=== PATIENT | male | born 1970 | race African-American/Black ===

== ENCOUNTER → 2019-03-07 | Outpatient (CLI) | payer OTHER, BC ==
--- NOTE | 2019-03-07 15:57 | KCIC ---
EXAMINATION: Magnetic resonance imaging (MRI) of the lumbar spine without contrast 03/07/2019 2:45 PM HISTORY: Low back pain. Left radiculopathy. TECHNIQUE: Multiplanar multi-weighted MRI of the lumbar spine was performed without intravenous contrast using the standard lumbar spine protocol. Contrast information: None administered. COMPARISON: None available. FINDINGS: There is minimal retrolisthesis of L5 on S1. There is straightening of the normal lumbar lordosis. Vertebral bodies demonstrate normal signal intensity on all sequences. There are no compression fractures. The conus medullaris terminates at the level of L1. The distal spinal cord signal intensity is normal. There is disc desiccation at L3-L4, L4-L5 and L5-S1. Mild endplate edema is noted at L5-S1. There is a horseshoe kidney. L1-L2: The disc is normal in configuration. There is no facet arthropathy. There is no neuroforaminal stenosis. There is no spinal canal stenosis. L2-L3: The disc is normal in configuration. There is no facet arthropathy. There is no neuroforaminal stenosis. There is no spinal canal stenosis. L3-L4: Mild disc bulge. There is mild facet arthropathy. There is mild neuroforaminal stenosis. There is no spinal canal stenosis. L4-L5: Mild circumferential disc bulge with right central annular fissure. There is no facet arthropathy. There is mild to moderate right and mild left neuroforaminal stenosis. There is no spinal canal stenosis. L5-S1: There is a disc bulge with central disc protrusion. There is no facet arthropathy. There is mild neuroforaminal stenosis. There is no spinal canal stenosis. IMPRESSION: Mild degenerative changes of the lumbar spine as described in detail above. Electronically signed by: Morenita Wright MD (03/07/2019 3:55 PM) [id number]
== END | disposition home or self-care (01) ==
LOC: KCIC MRI 14:21
PROVIDERS: ATTEND Family Medicine
DX: M51.27 Other intervertebral disc displacement, lumbosacral region (principal); M12.88 Other specific arthropathies, not elsewhere classified, other specified site; M47.816 Spondylosis without myelopathy or radiculopathy, lumbar region; M40.46 Postural lordosis, lumbar region; Q63.1 Lobulated, fused and horseshoe kidney; M48.061 Spinal stenosis, lumbar region without neurogenic claudication
CPT/HCPCS: 72148